=== PATIENT | male | born 1990 | race Two or more races ===

== ENCOUNTER 2018-10-11 10:26 | Emergency (ER) | payer OTHER ==
[~2018-10-11] VITALS: Ht 175.3 cm; Wt 72.6 kg
== END 2018-10-11 13:08 | disposition home or self-care (01) ==
LOC: ER 10:26
DX: S20.211A Contusion of right front wall of thorax, initial encounter (principal); W21.89XA Striking against or struck by other sports equipment, initial encounter; Y93.67 Activity, basketball; Y92.310 Basketball court as the place of occurrence of the external cause; Y99.8 Other external cause status